=== PATIENT | female | born 1965 | race African-American/Black ===

== ENCOUNTER 2020-04-07 23:42 | Emergency (ER) | payer MEDICAID ==
[~2020-04-07] VITALS: Ht 162.6 cm; Wt 100.0 kg
[2020-04-07 23:55] VITALS: BP 180/90
== END 2020-04-08 18:06 | disposition left against medical advice (07) ==
LOC: ER 23:42 → CANBEDREQ 04-08 09:35 → ER 04-08 18:06
DX: S06.5X9A Traumatic subdural hemorrhage with loss of consciousness of unspecified duration, initial encounter (principal); Y00.XXXA Assault by blunt object, initial encounter; Y93.89 Activity, other specified; Y92.488 Other paved roadways as the place of occurrence of the external cause
CPT/HCPCS: 99285